=== PATIENT | female | born 1990 | race African-American/Black ===

== ENCOUNTER 2016-11-18 01:09 | Emergency (ER) | payer MEDICAID ==
[~2016-11-18] VITALS: Ht 162.6 cm; Wt 59.9 kg
[~2016-11-18 01:09] MED LIST: ALBUTEROL SULF8.5 GM INH; AMOXICILLIN500 MG ORAL; AUGMENTIN 875-1 EAC1 ORAL; AZITHROMYCIN250 MG ORAL; LORATADINE10 M1 PO; NKM; NORCO 5-325 TA1 EACH ORAL; PHENERGAN6.25 MG/5 ORAL; TESSALON PERLE100 M2 ORAL; ZYRTEC10 MG ORAL
[2016-11-18 01:56] LABS: APPEARANCE,URINE CLEAR; KETONES,URINE NEGATIVE (NEGATIVE); LEUKOCYTE ESTERASE ,URINE NEGATIVE (NEGATIVE); NITRITE,URINE NEGATIVE (NEGATIVE); PH,URINE 6 (4.5-8.0); PROTEIN,URINE NEGATIVE (NEGATIVE); UROBILINOGEN,URINE NORMAL MG/DL (0.0-1.0)
[2016-11-18] MEDS ORDERED: PEPCID20 MG ORAL (02:39)
[2016-11-18 02:45] VITALS: BP_SYST 114; BP_SYST 117; BP_DIAS 75; BP_DIAS 76
--- NOTE | 2016-11-18 03:30 | Emergency Room Report ---
History of Present Illness General Chief Complaint: General Complaint Source: Patient Present Illness HPI [id number] here for 1) generalized bloating, abd pain for 1 week. No nausea/vomiting , fever/chills, diarrhea. Eating normally. No PMHx or PSHx. 2) left nipple discharge, milky white for 1 day. LMP 3 weeks prior. Denies chance of . Denies pain, itch, redness to left nipple. 3) "many months" of foul smell from vagina. Uses douche. Denies dysuria, polyuria. Recently had negative pap smear and STD check from PMD. Allergies: Coded Allergies: No Known Allergies (Unverified , 04/14/14) Patient History Past Medical History: none Past Surgical History: none Pertinent Family History: none Social History: Denies: alcohol use, drug use, smoking Last Menstrual Period: OCTOBER 31 Now: No Immunizations: UTD Reviewed Nursing Documentation: PMH: Agreed, PSxH: Agreed Review of Systems All Other Systems: negative except mentioned in HPI Physical Exam Vital Signs Date Time Temp Pulse Resp B/P Pulse Ox O2 Delivery O2 Flow Rate FiO2 11/18/16 01:20 98.1 104 18 117/75 99 Room Air Sp02 EP Interpretation: reviewed, normal General Appearance: normal inspection, well appearing, no apparent distress, alert Head: atraumatic ENT: normal ENT inspection, hearing grossly normal, normal voice Neck: normal inspection, full range of motion, supple, no bony tend Respiratory: normal inspection, lungs clear, normal breath sounds, no respiratory distress, no retraction, no wheezing, other - Breast exam done with JAKI Dinero present. Small amount of clear liquid from left nipple only when patient expresses it herself. No mastitis. Cardiovascular #1: regular rate, rhythm, no edema Gastrointestinal: normal inspection, normal bowel sounds, non tender, soft, no guarding, no hernia Genitourinary: no CVA tenderness Musculoskeletal: normal inspection, back normal, normal range of motion, Tess' s Sign negative Neurologic: normal inspection, alert, oriented x3, responsive, music leader III-XII nml as tested, DTRs symmetric, speech normal Psychiatric: normal inspection, judgement/insight normal, mood/affect normal Skin: normal inspection, normal color, no rash Medical Decision Making Diagnostic Impression: Primary Impression: Nipple discharge Additional Impressions: Vaginal odor Abdominal pain Qualified Codes: R10.84 - Generalized abdominal pain ER Course Urine preg negative UA grossly normal 1) Vaginal odor. Possibly related to douche. Advised to STOP using douche. 2) Nipple discharge. Not . Clear fluid. No sign of mastitis or infection. Advised [employer] followup at her clinic 3) Abd pain. No nv/diarrhea. No UTI. Non focal abd exam serial exam. Improved with pepcid in ED. ?gastritis, viral gastroenteritis. Rx pepcid. Return for worsening pain, focal pain, vomiting, fever. Last Vital Signs Date Time Temp Pulse Resp B/P Pulse Ox O2 Delivery O2 Flow Rate FiO2 11/18/16 02:45 98.1 75 18 117/75 99 Room Air Status: improved Disposition: HOME, SELF-CARE Condition: Improved Scripts Famotidine (PEPCID) 20 Mg Tablet 20 MG ORAL BID for 7 Days, #14 TAB 0 Refills Prov: EUGENIO MEREDITH M.D. 11/18/16 Patient Instructions: Viral Gastroenteritis, Adult, [id number] Additional Instructions: - Stop douche use - Take pepcid twice daily for 1 week - Follow up at your clinic with a [employer] to evaluate nipple discharge EUGENIO MEREDITH M.D. November 18, 2016 03:30
== END 2016-11-18 02:45 | disposition home or self-care (01) ==
LOC: EMR 01:40
DX: N64.52 Nipple discharge (principal); N94.9 Unspecified condition associated with female genital organs and menstrual cycle; R10.9 Unspecified abdominal pain
CPT/HCPCS: 81003; 81025; 99283